=== PATIENT | male | born 2000 | race Two or more races ===

== ENCOUNTER 2021-02-22 14:01 | Emergency (ER) | payer MEDICAID ==
[~2021-02-22] VITALS: Ht 177.8 cm; Wt 113.6 kg
[2021-02-22] MEDS ORDERED: KETOROLAC TROMETHAMINE 30 MG/ML VIAL IM ONE (15:00)
[2021-02-22 17:25] VITALS: BP 107/68
== END 2021-02-22 17:34 | disposition home or self-care (01) ==
LOC: EMS 14:03
DX: S02.2XXA Fracture of nasal bones, initial encounter for closed fracture (principal); X58.XXXA Exposure to other specified factors, initial encounter; Y93.89 Activity, other specified; Y92.89 Other specified places as the place of occurrence of the external cause; Y99.8 Other external cause status
CPT/HCPCS: 70450; 70486; 73630; 96372; 99285; J1885; 99284